=== PATIENT | male | born 1990 | race African-American/Black ===

== ENCOUNTER 2018-06-21 07:50 | Emergency (ER) | payer OTHER ==
[~2018-06-21] VITALS: Ht 175.3 cm; Wt 65.9 kg
[2018-06-21 07:57] VITALS: BP 111/68; PULSE 99; TEMP 98.7
[2018-06-21] MEDS ORDERED: ZITHROMAX Z PA250 MG PO (08:16)
== END 2018-06-21 08:32 | disposition home or self-care (01) ==
LOC: COL.ER 07:50
DX: J40 Bronchitis, not specified as acute or chronic (principal); F17.290 Nicotine dependence, other tobacco product, uncomplicated; F12.10 Cannabis abuse, uncomplicated